=== PATIENT | male | born 1980 | race African-American/Black ===

== ENCOUNTER 2022-06-04 17:02 | Emergency (ER) | payer OTHER ==
[2022-06-04 17:14] VITALS: BP 130/85; RESP 20; TEMP 98; BMI 29.9
[2022-06-04] MEDS ORDERED: CYCLOBENZAPRINE HCL 10 MG TABLET (FP) PO ONE (18:01)
[2022-06-04] MEDS ORDERED: KETOROLAC TROMETHAMINE 30 MG/1 ML VIAL IM ONE (18:01)
[2022-06-04] MEDS ORDERED: CYCLOBENZAPRINE HCL 10 MG TABLET (FP) ONE (18:03)
[2022-06-04] MEDS ORDERED: KETOROLAC TROMETHAMINE 30 MG/1 ML VIAL ONE (18:04)
[2022-06-04 18:25] VITALS: PULSE 88
== END 2022-06-04 18:30 | disposition home or self-care (01) ==
LOC: JERFT 17:02
PROC: 3E0233Z Introduction of Anti-inflammatory into Muscle, Percutaneous Approach (ICD-10-PCS; principal; 2022-06-04)
DX: S13.4XXA Sprain of ligaments of cervical spine, initial encounter (principal); V49.40XA Driver injured in collision with unspecified motor vehicles in traffic accident, initial encounter
CPT/HCPCS: 99284-25